=== PATIENT | male | born 1965 | race Caucasian/White ===

== ENCOUNTER 2021-03-30 19:26 | Emergency (ER) | payer BC ==
[~2021-03-30] VITALS: Ht 1798.3 cm; Wt 81.6 kg
[2021-03-30] MEDS ORDERED: HYDROMORPHONE 1 MG/1 ML DISP.SYRIN IM ONE (20:00)
[2021-03-30] MEDS ORDERED: ONDANSETRON HCL 4 MG TABLET PO ONE (20:00)
[2021-03-30] MEDS ORDERED: KETOROLAC TROMETHAMINE 60 MG INJ IM ONE ×2 (20:00→20:14)
[2021-03-30] MEDS ORDERED: HYDROMORPHONE 2 MG/1 ML DISP.SYRIN ONE (20:14)
[2021-03-30] MEDS ORDERED: ONDANSETRON HCL 4 MG TABLET ONE (20:14)
[2021-03-30] MEDS ORDERED: HYDROMORPHONE 1 MG/1 ML DISP.SYRIN ONE (20:14)
[2021-03-30 20:16] LABS: BASOPHILS % (AUTO) 0.7 % (0.0-2.0); EOSINOPHILS # (AUTO) 0.1 K/uL (0.0-0.7); EOSINOPHILS % (AUTO) 2.4 % (0.0-7.0); HEMATOCRIT 40.9 % (36.7-47.1); HEMOGLOBIN 14.1 g/dL (12.5-16.3); LYMPHOCYTES # (AUTO) 1.5 K/uL (20.0-40.0); LYMPHOCYTES % (AUTO) 24.9 % (20.5-51.5); MEAN CORPUSCULAR HEMOGLOBIN 32.5 uug (23.8-33.4); MEAN CORPUSCULAR HGB CONC 34 g/dL (32.5-36.3); MEAN CORPUSCULAR VOLUME 94.5 fL (73.0-96.2); MONOCYTES # (AUTO) 0.6 K/uL (2.0-10.0); MONOCYTES % (AUTO) 8.9 % (0.0-11.0); NEUTROPHILS # (AUTO) 3.9 K/uL (1.8-8.9); NEUTROPHILS % (AUTO) 63.1 % (38.5-71.5); PLATELET COUNT (AUTO) 153 K/uL (152-348); RED BLOOD CELL COUNT(AUTO) 4.33 MIL/uL (4.06-5.63); WHITE BLOOD COUNT (AUTO) 6.2 K/uL (3.6-10.2)
[2021-03-30 20:23] LABS: MAGNESIUM 2.1 mg/dL (1.8-2.4)
--- NOTE | 2021-03-30 21:10 | NUR ---
Patient resting in room with no distress noted.
[2021-03-30] MEDS ORDERED: OXYC-128 PO ×2 (21:27→21:29)
[2021-03-30] MEDS ORDERED: NAPR-1164 PO (21:27)
--- NOTE | 2021-03-30 21:47 | NUR ---
Patient discharged to home in stable condition with taking patient home. Written and verbal after care instructions given. Patient verbalizes understanding of instructions. Stressed follow up or return to ER for worsening s/s.
[2021-03-30 21:48] VITALS: BP 128/70
== END 2021-03-30 21:49 | disposition home or self-care (01) ==
LOC: ER 19:26
DX: M54.42 Lumbago with sciatica, left side (principal); K51.90 Ulcerative colitis, unspecified, without complications; Z79.899 Other long term (current) drug therapy
CPT/HCPCS: 36415; 72100; 80048; 83735; 85025; 96372 ×2; 99284; J1170 ×2; J1885; A4663; Q0162

== ENCOUNTER 2022-07-29 14:35 | Emergency (ER) | payer BC ==
[~2022-07-29] VITALS: Ht 180.3 cm; Wt 88.5 kg
[~2022-07-29 14:35] MED LIST: NAPR-1164 PO; OXYC-128 PO
--- NOTE | 2022-07-29 15:08 | NUR ---
Nursing SBAR given to registry nurse Cesilia.
--- NOTE | 2022-07-29 15:08 | NUR ---
AGREED TO HAVE LABS,CX-RAY AND 12 LEAD EKG DONE. PATIENT EDUCATED BY PHYSICIAN REGARDING CHEST PAIN AND ALSO COSTEOCHONDRITIS.PLACED ON MONITOR PER CM SB, ASYMPTOMATIC.NO DISTRESS NOTED.
--- NOTE | 2022-07-29 15:16 | NUR ---
1501pm: Patient initially refused blood draw, notified.
[2022-07-29 15:24] LABS: CARBON DIOXIDE 29 mmol/L (21-32); CHLORIDE 103 mmol/L (98-107); CREATININE 0.9 mg/dL (0.6-1.3); GLUCOSE 115 mg/dL (74-106); POTASSIUM 3.6 mmol/L (3.5-5.1); UREA NITROGEN, BLOOD 18 mg/dL (7-18)
[2022-07-29 15:44] LABS: HEMATOCRIT 35.9 % (36.7-47.1); MEAN CORPUSCULAR HEMOGLOBIN 36.8 uug (23.8-33.4); MEAN CORPUSCULAR VOLUME 106.6 fL (73.0-96.2); PLATELET COUNT (AUTO) 163 K/uL (152-348)
[2022-07-29] MEDS ORDERED: IBUP-1955 PO (15:50)
--- NOTE | 2022-07-29 16:30 | NUR ---
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 PER DR. WELLINGTON PATIENT TO WAIT FOR 2ND SET TROP AT 1700
[2022-07-29] MEDS ORDERED: KETOROLAC TROMETHAMINE 15 MG INJ IM ONE (16:45)
--- NOTE | 2022-07-29 17:00 | NUR ---
2ND SET TROP DRAWN BY TEACHER LIP READING AND PATIENT SEEN RUNNING OUT WITHOUT DISCHARGE INSTRUCTION. TRACK DOWN AND HAD PATIENT SIGN DISCHARGE INSTRUCTIONS AND F/U APPT. 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
[2022-07-30 01:00] VITALS: BP 128/76
== END 2022-07-29 17:03 | disposition home or self-care (01) ==
LOC: ER 14:35
DX: R07.9 Chest pain, unspecified (principal); R00.1 Bradycardia, unspecified; G47.30 Sleep apnea, unspecified; E78.5 Hyperlipidemia, unspecified; Z86.16 Personal history of COVID-19
CPT/HCPCS: 36415; 71045; 84484; 85025; 93005; A4663